=== PATIENT | female | born 2005 | race African-American/Black ===

== ENCOUNTER 2023-08-14 08:18 | Emergency (ER) | payer OTHER ==
[2023-08-14] MEDS ORDERED: Ibuprofen 800 MG TAB ONE (08:26)
== END 2023-08-14 08:47 | disposition home or self-care (01) ==
LOC: ERS 08:18
DX: T14.8XXA Other injury of unspecified body region, initial encounter (principal); M54.2 Cervicalgia; R07.9 Chest pain, unspecified; X58.XXXA Exposure to other specified factors, initial encounter
CPT/HCPCS: 99283

== ENCOUNTER 2024-06-16 08:27 | Emergency (ER) | payer MEDICAID | END 2024-06-16 10:17 | disposition home or self-care (01) | LOC: ERS 08:27 | DX: J10.1 Influenza due to other identified influenza virus with other respiratory manifestations (principal) | CPT/HCPCS: 71045; 87428 ==